=== PATIENT | male | born 1975 | race Caucasian/White ===

== ENCOUNTER 2023-02-11 08:38 | Outpatient (CLI) | payer SELFPAY ==
--- NOTE | 2023-02-11 08:46 | MR_ITS ---
WS: [id number] MRI LUMBAR SPINE NONCONTRAST HISTORY: Prolapsed lumbar intervertebral disc COMPARISON: None available. TECHNIQUE: Sagittal and axial multisequence imaging is submitted. Normal lumbar alignment with no compression fractures. Small amount of marrow edema along the adjacen t endplates of L5 and S1, greatest to the LEFT. Mild disc desiccation at L4-5 and L5-S1. Conus terminates normally at L1-2 disc level. L1-L2: Normal. L2-L3: Normal. L3-L4: Mild ligamentum flavum and facet arthritis. There is very slight narrowing of the foramina. Sl ightly greater on the RIGHT. No high-grade stenosis. L4-L5: Mild annular disc bulging with mild ligamentum flavum and facet arthritis. There is disc encro achment upon the subarticular recesses and the traversing L5 nerve roots. Mild osteophytic ridging. V deborah mild subarticular recess encroachment and mild foraminal narrowing. L5-S1: Mild annular disc bulging and osteophytic ridging. Mild to moderate ligamentum flavum and face t arthritis. No focal disc protrusions. Moderate bilateral foraminal stenosis. There is disc contacti ng the exiting L5 nerve roots. Paravertebral soft tissues are normal. IMPRESSION: 1. Mild degenerative disc disease at L4-5 and L5-S1. Reactive marrow edema along the endplates of L5 and S1. 2. No high-grade central stenosis. 3. L3-4: Very mild bilateral foraminal narrowing. 4. L4-5: Very mild disc and osteophyte encroachment upon the subarticular recesses and mild foraminal narrowing. 5. Moderate bilateral foraminal stenosis. Disc contacts the exiting L5 nerve roots.
== END 2023-02-11 08:39 | disposition home or self-care (01) ==
LOC: RAD 08:39
PROVIDERS: Visit Provider Family Medicine
DX: M51.26 Other intervertebral disc displacement, lumbar region (principal); M51.37 Other intervertebral disc degeneration, lumbosacral region; M48.07 Spinal stenosis, lumbosacral region; M25.78 Osteophyte, vertebrae
CPT/HCPCS: 72148